=== PATIENT | female | born 1985 | race Caucasian/White ===

== ENCOUNTER 2017-09-08 15:25 | Inpatient (IN) | payer OTHER ==
[2017-09-08] MEDS ORDERED: TERBUTALINE 1 MG/ML VIAL SQ PRN (16:09)
[2017-09-08] MEDS ORDERED: METHYLERGONOVINE 0.2 MG/ML 1 ML AMP IM PRN (16:09)
[2017-09-08] MEDS ORDERED: CARBOPROST TROMETHAMINE 250 MCG/ML 1 ML AMP IM PRN (16:09)
[2017-09-08] MEDS ORDERED: OXYTOCIN 10 UNIT/ML 1 ML VIAL IM PRN (16:09)
[2017-09-08] MEDS ORDERED: LIDOCAINE 1% (PF) 10 MG/ML (30 ML SDV) SQ PRN (16:09)
[2017-09-08] MEDS ORDERED: OXYTOCIN 20 UNITS/1000 ML NS 1,000 ML IV SCH ×2 (16:15→19:14)
[2017-09-08] MEDS ORDERED: fentaNYL (PF) 50 MCG/ML 5 ML AMP ONE (16:32)
[2017-09-08] MEDS ORDERED: SODIUM CHLORIDE 0.9% 100 ML BAG ONE (16:32)
[2017-09-08] MEDS ORDERED: BUPIVACAINE (PF) 0.25% 30 ML VIAL ONE (16:32)
[2017-09-08 16:34] VITALS: BMI 32.5
[2017-09-08 16:36] LABS: Anisocytosis Slight; Basophils % (A) 0 %; Eosinophils # (A) 0.1 k/uL (0-0.7); Eosinophils % (A) 1 %; HCT 29.2 % (34.0-46.0); Hypochromasia Marked; Lymphocytes # (A) 1.7 k/uL (1.0-4.8); Lymphocytes % (A) 19 %; MCH 21.7 pg (25.0-35.0); MCHC 30.9 g/dL (31.0-37.0); MCV 70.2 fL (80.0-100.0); Mean Platelet Volume 8.1; Microcytosis Marked; Monocytes # (A) 0.5 k/uL (0-1.0); Monocytes % (A) 6 %; Neutrophils # (A) 6.5 k/uL (1.3-7.7); Neutrophils % (A) 73 %; Platelet Count 235 k/uL (150-450); Poikilocytosis Slight; RBC 4.15 m/uL (3.80-5.40); RDW 16.4 % (11.5-15.5); WBC 8.9 k/uL (3.8-10.6)
[2017-09-08] MEDS: LACTATED RINGERS 1,000 ML IV SCH ×2 (16:56→16:59)
--- NOTE | 2017-09-08 17:59 | P.HPOB ---
History of Present Illness H&P Date: 09/08/17 Chief Complaint: Contractions, SROM This is a 31-year-old female 3 para 2 with an estimated date of confinement of 09/13/2017, estimated gestational age of 39-2/7 weeks, who presents to labor and delivery with complaints of spontaneous rupture of membranes with clear fluid noted at approximately 1:30 AM. She began feeling contractions and noticed they were about 4 minutes apart on arrival. care has been with Dr. Harvey. Her course this was complicated by some tachycardia for which she saw cardiology. They did not recommend any medication during her . labs: GC/chlamydia-negative Obstetrical ultrasound-normal anatomy Hepatitis B surface antigen-negative RPR-nonreactive Rubella-immune Blood type-A+ Antibody screen-negative HIV-nonreactive Hemoglobin-10.5 Toxoplasma screen-negative One hour Glucola-177 Three-hour Glucola-within normal limits Group B streptococcus-negative Obstetrical history: . History of 2 vaginal deliveries at full term with no complications. Gynecologic history: No history of sexual transmitted diseases. Review of Systems Constitutional: Denies chills, Denies fever Eyes: denies blurred vision, denies pain Ears, nose, mouth and throat: Denies headache, Denies sore throat Cardiovascular: Denies chest pain, Denies shortness of breath Respiratory: Denies cough Gastrointestinal: Reports abdominal pain (Contractions) Genitourinary: Reports , Reports vaginal discharge Musculoskeletal: Reports low back pain Neurological: Denies numbness, Denies weakness Psychiatric: Denies anxiety, Denies depression Past Medical History Additional Past Medical History / Comment(s): History of tachycardia during this History of Any Multi-Drug Resistant Organisms: None Reported Past Surgical History: No Surgical Hx Reported Past Anesthesia/Blood Transfusion Reactions: No Reported Reaction Past Psychological History: No Psychological Hx Reported Smoking Status: Never smoker Past Alcohol Use History: None Reported Past Drug Use History: None Reported - Past Family History Father Family Medical History: No Reported History Mother History Unknown: Yes Family Medical History: Coronary Artery Disease (CAD) Medications and Allergies Home Medications Medication Instructions Recorded Confirmed Type RX: Vit No.124/Iron/Folic 1 each PO DAILY 07/22/14 07/22/14 History [ Vitamin Tablet] Allergies Allergy/AdvReac Type Severity Reaction Status Date / Time No Known Allergies Allergy Verified 03/26/15 06:32 Exam Osteopathic Statement: *. No significant issues noted on an osteopathic structural exam other than those noted in the History and Physical/Consult. - Vital Signs Vital signs: Vital Signs Temp Pulse Resp BP Pulse Ox 09/08/17 16:04 97.6 F 96 20 138/89 99 09/08/17 15:35 138/89 09/08/17 15:30 97.6 F 96 20 142/90 99 Intake and Output 09/08/17 09/08/17 09/08/17 06:59 14:59 22:59 Other: Weight 86.183 kg HEENT: Within normal limits Heart: Regular rate and rhythm Lungs: Clear to auscultation bilaterally Abdomen: Cervix: Initially 3-1/2 cm/70%/-2 station. Positive amnisure with clear fluid noted. heart tones: Reactive Contractions: Every 2-4 minutes Extremities: Negative Homans Results Result Diagrams: 09/08/17 16:30 Abnormal Lab Results - Last 24 Hours (Table) 09/08/17 Range/Units 16:30 Hgb 9.0 L (11.4-16.0) gm/dL Hct 29.2 L (34.0-46.0) % MCV 70.2 L (80.0-100.0) fL MCH 21.7 L (25.0-35.0) pg MCHC 30.9 L (31.0-37.0) g/dL RDW 16.4 H (11.5-15.5) % Assessment and Plan (1) 39 weeks gestation of Current Visit: Yes Status: Acute Code(s): Z3A.39 - 39 WEEKS GESTATION OF SNOMED Code(s): 83917270 Plan: Admission for active labor. Epidural anesthesia. Expectant management.
[2017-09-08] MEDS ORDERED: HYDROCORTISONE 2.5% RECTAL CREAM 30 GM TUBE RECTAL PRN (19:14)
[2017-09-08] MEDS ORDERED: LANOLIN CREAM 5 GM TUBE TOPICAL PRN (19:14)
[2017-09-08] MEDS ORDERED: ZOLPIDEM 5 MG TAB PO PRN (19:14)
[2017-09-08] MEDS ORDERED: diphenhydrAMINE 50 MG CAP PO PRN (19:14)
[2017-09-08] MEDS ORDERED: SIMETHICONE 80 MG CHEWABLE PO PRN (19:14)
[2017-09-08] MEDS ORDERED: WITCH HAZEL 1 EACH MED..PAD TOPICAL PRN (19:14)
[2017-09-08] MEDS ORDERED: ACETAMINOPHEN TAB 325 MG TAB PO PRN (19:14)
[2017-09-08] MEDS ORDERED: diphenhydrAMINE 25 MG CAP PO PRN (19:14)
[2017-09-08] MEDS ORDERED: diphenhydrAMINE 50 MG/ML 1 ML VIAL IVP PRN ×2 (19:14)
[2017-09-08] MEDS ORDERED: BENZOCAINE/MENTHOL SPRAY 1 GM/SPRAY AEROSOL TOPICAL PRN (19:14)
[2017-09-08] MEDS ORDERED: IBUPROFEN 600 MG TAB PO PRN (19:14)
--- NOTE | 2017-09-08 19:15 | P.PROBDLV ---
Vaginal Delivery Note - . Vaginal Delivery Note: The patient progressed to complete dilation after epidural anesthesia. Once reaching complete dilation, she began pushing. She pushed for approximately 1 hour and 15 minutes and then 's head family came to a crown. With one further push, the infant's head delivered across the perineum in a occiput posterior lie followed by the anterior shoulder. Nose and mouth were bulb suctioned at the perineum and the remainder the easily delivered and was placed on mother's abdomen. Nose and mouth were again bulb suctioned and cord was clamped and cut. Infant was taken to warmer for evaluation. A viable female was noted with scores of 8 at 1 minute and 9 at 5 minutes and infant weight of 8 pounds even. Placenta delivered shortly thereafter, intact, with a three-vessel cord. Uterus contracted well after oxytocin was given IM. Her IV did subcutaneous. Inspection of the perineum revealed no perineal lacerations. Lateral was drained with a catheter. Estimated blood loss was approximately 100 mL's. Both mother and are in stable condition.
[2017-09-08] MEDS: SENNOSIDES-DOCUSATE SODIUM 1 EACH TAB PO SCH (20:56)
[2017-09-09 07:29] LABS: Basophils % (A) 0 %; Eosinophils # (A) 0.1 k/uL (0-0.7); Eosinophils % (A) 1 %; HCT 28.9 % (34.0-46.0); HGB 9.1 gm/dL (11.4-16.0); Hypochromasia Marked; Lymphocytes # (A) 2.3 k/uL (1.0-4.8); Lymphocytes % (A) 17 %; MCH 22.2 pg (25.0-35.0); MCHC 31.6 g/dL (31.0-37.0); MCV 70.3 fL (80.0-100.0); Mean Platelet Volume 8.3; Microcytosis Moderate; Monocytes # (A) 0.6 k/uL (0-1.0); Monocytes % (A) 4 %; Neutrophils # (A) 10.6 k/uL (1.3-7.7); Neutrophils % (A) 77 %; Platelet Count 225 k/uL (150-450); Poikilocytosis Slight; RBC 4.11 m/uL (3.80-5.40); RDW 15.9 % (11.5-15.5); WBC 13.8 k/uL (3.8-10.6)
--- NOTE | 2017-09-09 07:56 | P.PNOBGVD ---
Subjective - Subjective Principal diagnosis: S/P NVD PPD #1 Interval history: Pt seen and examined. Denies N/V, F/C, CP, SOB or calf pain. Patient reports: Reports appetite normal, Reports voiding normally, Reports pain well controlled, Reports ambulating normally [place]: doing well Objective - Latest Vital Signs Latest vital signs: Vital Signs Temp Pulse Resp BP Pulse Ox 09/09/17 04:00 99.0 F 102 H 16 120/75 09/09/17 00:00 98.4 F 102 H 16 139/68 09/08/17 21:13 98.0 F 107 H 16 138/76 09/08/17 20:43 102 H 16 132/78 09/08/17 20:13 98 16 137/73 09/08/17 19:58 99 6 L 130/71 09/08/17 19:43 96.7 F L 105 H 16 128/71 09/08/17 19:28 109 H 16 142/71 09/08/17 19:13 115 H 16 147/85 09/08/17 16:04 97.6 F 96 20 138/89 99 09/08/17 15:35 138/89 09/08/17 15:30 97.6 F 96 20 142/90 99 Intake and Output 09/08/17 09/09/17 09/09/17 22:59 06:59 14:59 Output Total 100 Balance -100 Output: Estimated Blood Loss 100 Other: # Voids 1 2 Weight 86.183 kg - Exam Lungs: bilateral: normal Chest: Normal S1, Normal S2 Extremities: Present: normal Abdomen: Present: normal appearance, soft Uterus: Present: normal, firm - Labs Labs: Abnormal Lab Results - Last 24 Hours (Table) 09/08/17 09/09/17 Range/Units 16:30 07:18 WBC 13.8 H (3.8-10.6) k/uL Hgb 9.0 L 9.1 L (11.4-16.0) gm/dL Hct 29.2 L 28.9 L (34.0-46.0) % MCV 70.2 L 70.3 L (80.0-100.0) fL MCH 21.7 L 22.2 L (25.0-35.0) pg MCHC 30.9 L (31.0-37.0) g/dL RDW 16.4 H 15.9 H (11.5-15.5) % Neutrophils # 10.6 H (1.3-7.7) k/uL Assessment and Plan (1) Normal vaginal delivery Current Visit: Yes Status: Acute Code(s): O80 - ENCOUNTER FOR FULL-TERM UNCOMPLICATED DELIVERY SNOMED Code(s): 96386937 Plan: 1. cont pp care
[2017-09-09] MEDS: SENNOSIDES-DOCUSATE SODIUM 1 EACH TAB PO SCH ×2 (08:16→20:28)
[2017-09-10 01:00] VITALS: BP 130/74; PULSE 80; RESP 16; TEMP 98.2
--- NOTE | 2017-09-10 08:46 | P.MSEPDOC ---
Presenting Problems - Arrival Data Date of Arrival on Unit: 09/08/17 Time of Arrival on Unit: 16:15 Mode of Transport: Wheelchair - Complaint OB-Reason for Admission/Chief Complaint: Possible Onset of Labor Comment: LEAKING OF FLUID ONSET 2 HOURS AGO Medical History - Information : 3 Para: 2 Term: 2 : 0 Abortions: Spontaneous or Elective: 0 Number of Living Children: 2 - Gestational Age Gestational Age by TARIK (wks/days): 39 Weeks and 2 Days Review of Systems - Review of Systems Constitutional: No problems Breast: No problems ENT: No problems Cardiovascular: No problems Respiratory: No problems Gastrointestinal: No problems Genitourinary: No problems Musculoskeletal: No problems Neurological: No problems Skin: No problems Vital Signs - Temperature Temperature: 98.2 F Temperature Source: Oral - Pulse Right Brachial Pulse Rate: 80 Pulse Assessment Method: Automatic Cuff - Respirations Respiratory Rate: 16 Oxygen Delivery Method: Room Air - Blood Pressure Right Arm Blood Pressure: 130/74 Blood Pressure Mean: 92 Blood Pressure Source: Automatic Cuff Medical Screen Scoring (Pre) - Cervical Exam Dilation: 1-3 cm = 1 Effacement: More than 50% = 2 Membranes: Ruptured = 3 - Uterine Contractions Frequency: > 5 minutes apart = 1 Duration: > 40 seconds = 2 Intensity: N/A - Maternal Vital Signs Maternal Temperature: N/A Maternal Blood Pressure: N/A Signs of Preeclampsia: N/A Maternal Respirations: N/A - Pain Assessment Pain Location and Character: Lower, Abdomen Pain Scale Used: Numeric (1 - 10) Pain Intensity: 5 Pain Description: *Acute Pain Frequency: Intermittent Pain Duration: 2 Pain Duration Units: Hours Pain Behavior: Facial Grimacing, Vocalization Pain Aggravating Factors: Activity, Contractions Non-Pharmacological Interventions: Darkened Room, Position/Reposition, Relaxation Technique - Total Score Total Score (Pre): 9 - Level of Risk Level of Risk: Medium (6-9) Physician Notification (Pre) - Physician Notified Physician Notified Date: 09/08/17 Physician Notified Time: 16:05 Physician/Practitioner Notifed:: URSULA Spoke With: URSULA New Order Received: Yes - Notification Comment Comment: ADMIT Disposition - Disposition OB Disposition: Admit I agree with the RN Medical Screening Exam: Yes Risk & Benefit of care provided described in d/c instruction: Yes Diagnosis: ENCOUNTER FOR FULL-TERM UNCOMPLICATED DELIVERY
--- NOTE | 2017-09-10 08:48 | P.DS ---
Providers Date of admission: 09/08/17 16:07 Expected date of discharge: 09/10/17 Attending physician: Gilda Harvey Primary care physician: Stated None - Discharge Diagnosis(es) (1) Normal vaginal delivery Current Visit: Yes Status: Acute Hospital Course: Patient presented in active labor. She underwent normal vaginal delivery. Her course was uncomplicated. She'll be discharged home day # 2 in stable condition to follow-up with me in 6 weeks. Plan - Discharge Summary Discharge Rx Participant: No New Discharge Prescriptions: No Action Vit No.124/Iron/Folic [ Vitamin Tablet] 1 each PO DAILY Discharge Medication List Vit No.124/Iron/Folic [ Vitamin Tablet] 1 each PO DAILY [History] Follow up Appointment(s)/Referral(s): Gilda Harvey DO [Doctor of Osteopathic Medicine] - 6 Weeks
[2017-09-10] MEDS: SENNOSIDES-DOCUSATE SODIUM 1 EACH TAB PO SCH (10:38)
== END 2017-09-10 11:36 | disposition home or self-care (01) | DRG 775 ==
LOC: FBPOP 15:25 → 4FBP 16:07
PROVIDERS: ADMIT Obstetrics & Gynecology; ATTEND Obstetrics & Gynecology
PROC: 10E0XZZ Delivery of Products of Conception, External Approach (ICD-10-PCS; principal; 2017-09-08)
PROC: 00HU33Z Insertion of Infusion Device into Spinal Canal, Percutaneous Approach (ICD-10-PCS; 2017-09-08)
PROC: 3E0R3NZ Introduction of Analgesics, Hypnotics, Sedatives into Spinal Canal, Percutaneous Approach (ICD-10-PCS; 2017-09-08)
DX: O80 Encounter for full-term uncomplicated delivery (principal); Z37.0 Single live birth; Z3A.39 39 weeks gestation of pregnancy; Z82.49 Family history of ischemic heart disease and other diseases of the circulatory system
CPT/HCPCS: 59025; 85025; 88307; 99213